=== PATIENT | female | born 1955 | race Caucasian/White ===

== ENCOUNTER 2017-01-31 07:49 | Day surgery (SDC) | payer MEDICARE, BC ==
[2017-01-31] MEDS ORDERED: Propofol 200 MG/20 ML SDV ONE (08:31)
[2017-01-31] MEDS ORDERED: Midazolam 1 MG/ML 2 ML SDV ONE (08:31)
[2017-01-31] MEDS ORDERED: fentaNYL 100 MCG/2 ML SDV ONE (08:31)
[2017-01-31] MEDS ORDERED: Sodium Chloride 0.9% 1,000 ML IV SCH (08:45)
[2017-01-31 10:57] VITALS: BP 116/70
--- NOTE | 2017-01-31 14:39 | OR ---
DATE OF PROCEDURE: 01/31/2017 PROCEDURE: Colonoscopy. PREOPERATIVE DIAGNOSIS: Screening/history of colon polyps. POSTOPERATIVE DIAGNOSIS: Screening/history of colon polyps. COMPLICATION: None. CORRECTIONAL PROGRAM OFFICER: None. ANESTHESIA: MAC. Risks, benefits, alternatives, and limitations, including, but not limited to infection, bleeding, and perforation were explained to the patient and wished to proceed. FINDINGS: 1. Sigmoid colon polyp, 5 mm, completely removed using cold biopsy forceps. 2. Rectal polyp, completely removed with cold biopsy forceps. PROCEDURE IN DETAIL: The patient was placed in left lateral decubitus position. Digital rectal exam was performed without abnormalities. The scope was introduced and advanced atraumatically to the ileocecal valve. The scope was brought back to the ascending, transverse, and descending colon and retroflexed. The aforementioned polyps were identified and completely removed using cold biopsy forceps. No diverticulosis, no masses aside from the polyps that were completely removed using cold biopsy forceps. No other abnormalities were noted. The patient tolerated the procedure well. Monty Marie MD /[id number]
== END 2017-01-31 10:40 | disposition home or self-care (01) ==
LOC: JP.SDS 07:49
PROVIDERS: ATTEND Surgery
DX: Z12.11 Encounter for screening for malignant neoplasm of colon (principal); K63.5 Polyp of colon; K62.1 Rectal polyp; E78.00 Pure hypercholesterolemia, unspecified; E74.39 Other disorders of intestinal carbohydrate absorption; F41.9 Anxiety disorder, unspecified; F33.9 Major depressive disorder, recurrent, unspecified; M79.7 Fibromyalgia; R10.13 Epigastric pain; M19.90 Unspecified osteoarthritis, unspecified site; G47.33 Obstructive sleep apnea (adult) (pediatric); G47.00 Insomnia, unspecified; R32 Unspecified urinary incontinence; N18.9 Chronic kidney disease, unspecified; K76.0 Fatty (change of) liver, not elsewhere classified; F43.10 Post-traumatic stress disorder, unspecified; Z79.899 Other long term (current) drug therapy
CPT/HCPCS: 45380; J2250; J2704; J3010; J7040; 88305

== ENCOUNTER 2023-02-13 11:11 | Emergency (ER) | payer MEDICARE ==
[2023-02-13 12:27] VITALS: BP 156/67; PULSE 73
[2023-02-13 13:37] LABS: ESTIMATED GFR 50 mL/min (>60)
[2023-02-13 14:06] LABS: CORONAVIRUS COVID-19 NAA NEGATIVE (NEGATIVE)
== END 2023-02-13 14:27 | disposition home or self-care (01) ==
LOC: JP.ED 11:11
DX: N30.00 Acute cystitis without hematuria (principal); F41.9 Anxiety disorder, unspecified; R42 Dizziness and giddiness; I10 Essential (primary) hypertension; J44.9 Chronic obstructive pulmonary disease, unspecified; K21.9 Gastro-esophageal reflux disease without esophagitis; E66.9 Obesity, unspecified; Z91.048 Other nonmedicinal substance allergy status; Z20.822 Contact with and (suspected) exposure to COVID-19; Z79.899 Other long term (current) drug therapy; Z68.34 Body mass index [BMI] 34.0-34.9, adult
CPT/HCPCS: 0241U; 36415; 71046; 80053; 81001; 85025; 87086; 87088; 87186; 99284; 99285

== ENCOUNTER 2023-04-03 20:25 | Emergency (ER) | payer MEDICARE ==
[2023-04-03] MEDS ORDERED: Albuterol/Ipratropium 3.0-0.5 MG/3 ML Neb Soln NEB ONE (21:33)
[2023-04-03] MEDS ORDERED: Doxycycline 100 MG Cap PO ONE (21:33)
[2023-04-03] MEDS ORDERED: predniSONE 20 MG Tab PO ONE (21:33)
[2023-04-03 22:15] VITALS: BP 158/68; PULSE 72
== END 2023-04-03 22:29 | disposition home or self-care (01) ==
LOC: JP.ED 20:25
DX: J44.1 Chronic obstructive pulmonary disease with (acute) exacerbation (principal); E78.00 Pure hypercholesterolemia, unspecified; I10 Essential (primary) hypertension; E66.9 Obesity, unspecified; Z68.35 Body mass index [BMI] 35.0-35.9, adult; Z91.048 Other nonmedicinal substance allergy status; Z87.891 Personal history of nicotine dependence
CPT/HCPCS: 94640; 99284; A9270; J7512; J7620

== ENCOUNTER 2025-10-13 06:36 | Day surgery (SDC) | payer MEDICARE ==
[2025-10-13] MEDS: Lactated Ringers 1,000 ML IV SCH (07:26)
[2025-10-13] MEDS ORDERED: Propofol 200 MG/20 ML SDV ONE (07:27)
[2025-10-13] MEDS ORDERED: fentaNYL 100 MCG/2 ML SDV ONE (07:27)
[2025-10-13 09:13] VITALS: BP 122/50; PULSE 66
== END 2025-10-13 09:35 | disposition home or self-care (01) ==
LOC: JP.SDS 06:36
PROVIDERS: ATTEND Surgery
DX: Z12.11 Encounter for screening for malignant neoplasm of colon (principal); K63.5 Polyp of colon; K57.30 Diverticulosis of large intestine without perforation or abscess without bleeding; E78.00 Pure hypercholesterolemia, unspecified; I10 Essential (primary) hypertension; K21.9 Gastro-esophageal reflux disease without esophagitis; F31.9 Bipolar disorder, unspecified; E66.9 Obesity, unspecified; Z87.891 Personal history of nicotine dependence; Z79.899 Other long term (current) drug therapy
CPT/HCPCS: 00811; 45385; J2704; J3010; J7120; 88305